=== PATIENT | male | born 1995 | race Caucasian/White ===

== ENCOUNTER 2023-09-25 19:24 | Emergency (ER) | payer SELFPAY ==
[2023-09-25] MEDS ORDERED: Ibuprofen 200 MG TAB ONE (19:57)
[2023-09-25] MEDS ORDERED: Boostrix 0.5 ML (Tdap) VIAL (>/=7 yrs of age) ONE (19:58)
[2023-09-25] MEDS ORDERED: Triple Antibiotic Oint 1 GM Packet ONE (20:24)
== END 2023-09-25 20:37 | disposition home or self-care (01) ==
LOC: NAV ERS 19:24
DX: S63.615A Unspecified sprain of left ring finger, initial encounter (principal); S63.617A Unspecified sprain of left little finger, initial encounter; S61.217A Laceration without foreign body of left little finger without damage to nail, initial encounter; F17.210 Nicotine dependence, cigarettes, uncomplicated; F17.290 Nicotine dependence, other tobacco product, uncomplicated; X50.0XXA Overexertion from strenuous movement or load, initial encounter; Y93.89 Activity, other specified; Z23 Encounter for immunization
CPT/HCPCS: 90471; 90715